=== PATIENT | male | born 1960 | race African-American/Black ===

== ENCOUNTER 2017-05-20 16:13 | Emergency (ER) | payer MEDICAID, OTHER ==
[~2017-05-20] VITALS: Ht 200.7 cm; Wt 74.5 kg
[~2017-05-20 16:13] MED LIST: DIVA500T35 PO; LISI-660 PO; RISP2 PO
[2017-05-20 16:19] VITALS: BP 127/98
== END 2017-05-20 19:02 | disposition home or self-care (01) ==
LOC: EMS 16:15
DX: Z76.0 Encounter for issue of repeat prescription (principal); E11.9 Type 2 diabetes mellitus without complications
CPT/HCPCS: 99283